=== PATIENT | male | born 1980 | race Caucasian/White ===

== ENCOUNTER 2018-10-10 12:50 | Emergency (ER) | payer OTHER ==
[~2018-10-10] VITALS: Ht 180.3 cm; Wt 85.0 kg
[~2018-10-10 12:50] MED LIST: AMOX500C2 PO; BENZ1LOZ52 MM; LACT1CAP57 PO
[2018-10-10 12:55] VITALS: BP 130/79; PULSE 122; RESP 18; Ht 180.3 cm; Wt 85.0 kg
--- NOTE | 2018-10-10 14:00 | ERD ---
ER Documentation Chief Complaint Chief Complaint sorethroat x8 days, cough today, seen @ clinic 3 days ago HPI 38-year-old male presented to ED for sore throat x8 days. Patient states he was seen at a clinic 3 days ago and they sent him home with throat spray and told to return if symptoms worsen. Patient states the throat sore throat has been worse over the past 2 days. Patient states he has a mild cough. Patient denies any past medical history he is currently not taking any other medications and he has no allergies to medications. Patient states the discomfort is a 7 out of 10. ROS All systems reviewed and are negative except as per history of present illness. Medications Home Meds Active Scripts Benzocaine/Menthol* (Cepacol* Sore Throat Lozenges) 1 Each Lozenge, 1 EACH MM q2h PRN for SORE THROAT for 30 Days, LOZENGE Prov:SAAD MORALES PA-C 10/10/18 Lactobacillus Rhamnosus* (Culturelle*) 1 Each Cap.sprink, 1 CAP PO BID for 30 Days, CAP Prov:SAAD MORALES PA-C 10/10/18 Amoxicillin* (Amoxicillin*) 500 Mg Cap, 500 MG PO BID for 10 Days, CAP Prov:SAAD MORALES PA-C 10/10/18 Allergies Allergies: Coded Allergies: No Known Allergy (Unverified , 10/10/18) PMhx/Soc Medical and Surgical Hx: pt denies Medical Hx, pt denies Surgical Hx Hx Alcohol Use: No Hx Substance Use: No Hx Tobacco Use: No Smoking Status: Never smoker FmHx Family History: No diabetes, No coronary disease, No other Physical Exam Vitals Vital Signs Date Temp Pulse Resp B/P (MAP) Pulse Ox O2 O2 Flow FiO2 Time Delivery Rate 10/10/18 97.7 122 18 130/79 100 12:55 (96) Physical Exam HEENT: Enlarged Grade 3, non-obstructive Tonsils with exudates present NECK: anterior cervical lymphadenopathy. CHEST: Clear to auscultation bilaterally. There are no rales, wheezes or rhonchi. HEART: Regular rate and rhythm. No murmurs, clicks, rubs or gallops. ABDOMEN: Soft, nontender and nondistended. Good bowel sounds. No rebound or guarding. No gross peritonitis. No gross organomegaly or masses. No Bagley sign or McBurney point tenderness. BACK: No midline or flank tenderness. Procedures/MDM ED course: The patient was stable throughout the ED course. The patient and/or family informed of laboratory and diagnostic imaging results throughout the ED course. Procedures: Absence of cough (0/1) = 1 Swollen and tender anterior cervical nodes (0/1) = 1 Temp >100.4 (0/1) = 0 Exudates or swelling ( 0/1) = 1 Age 3-14 (1) 15-44 (0) >45 ( -1) Score = 3 Medical decision making: Patient 38-year-old male presented to ED for sore throat x8 days. Patient was seen at urgent care the other day he was sent home with throat lozenge ears and throat spray. Patient states he is been feeling worse. Physical exam revealed enlarged tonsils grade 3 with exudates present the patient has a foul odor to his breath. On intake the patient indicated that he had a cough but on further investigation he states it just feels pressure in his throat and he feels like he has to cough. Patient can speak in full sentences he is in no acute respiratory distress his tonsils are nonobstructive he is afebrile and O2 sats 100%. At this time I have low suspicion for r Epiglottis, gonococcal pharyngitis, peritonsillar abscess, Scarlet fever, Kawasaki disease, Diphtheria, airway obstruction. The patient will be treated outpatient with antibiotics. Advised patient symptoms worsen return to ER immediately. Patient needs follow- up primary care provider in 1 to 2 days regarding this visit. Questions were answered upon discharge and patient agreement treatment plan. Prescription for home: Amoxicillin Probiotics Throat lozenges I have discussed with the patient proper use and common side effects to expert with the medication . I advised the patient/family to speak with the pharmacist dispensing the medication to be advised of any potential drug interactions with other medication or supplements they may be taking. Discharge: At this time, patient is stable for discharge and outpatient management. I have instructed the patient to follow-up with his\her primary care physician in 1 to 2 days. I have discussed with the patient the possibility of needing to see a specialist for further work-up and imaging studies if symptoms persist. I have instructed the patient to promptly return to the ER for any new or worsening symptoms including increased pain, fever, nausea, vomiting, weakness or LOC. The patient and\or family expressed understanding of and agreement with this plan. All questions were answered. Home care instructions were provided. Disclaimer: Inadvertent spelling and grammatical errors are likely due to EHR\dictation software use and do not reflect on the overall quality of patient care. Also, please note that the electronic time recorded on the note does not necessarily reflect the actual time of the patient encounter. Departure Diagnosis: Primary Impression: Sore throat Additional Impression: Bacterial pharyngitis Condition: Stable Patient Instructions: Pharyngitis, Strep (Presumed) Referrals: [facility] YOU HAVE RECEIVED A MEDICAL SCREENING EXAM AND THE RESULTS INDICATE THAT YOU DO NOT HAVE A CONDITION THAT REQUIRES URGENT TREATMENT IN THE EMERGENCY DEPARTMENT. FURTHER EVALUATION AND TREATMENT OF YOUR CONDITION CAN WAIT UNTIL YOU ARE SEEN IN YOUR DOCTORS OFFICE WITHIN THE NEXT 1-2 DAYS. IT IS YOUR RESPONSIBILITY TO MAKE AN APPOINTMENT FOR FOLOW-UP CARE. IF YOU HAVE A PRIMARY DOCTOR --you should call your primary doctor and schedule an appointment IF YOU DO NOT HAVE A PRIMARY DOCTOR YOU CAN CALL OUR PHYSICIAN REFERRAL HOTLINE AT IF YOU CAN NOT AFFORD TO SEE A PHYSICIAN YOU CAN CHOSE FROM THE FOLLOWING [facility] [address] [facility]. [facility] [address] [facility]. [facility] [address] [facility] [facility] [address] [facility] [facility] [address] [facility]. [facility]. [address] [facility]. [facility] YOU HAVE RECEIVED A MEDICAL SCREENING EXAM AND THE RESULTS INDICATE THAT YOU DO NOT HAVE A CONDITION THAT REQUIRES URGENT TREATMENT IN THE EMERGENCY DEPARTMENT. FURTHER EVALUATION AND TREATMENT OF YOUR CONDITION CAN WAIT UNTIL YOU ARE SEEN IN YOUR DOCTORS OFFICE WITHIN THE NEXT 1-2 DAYS. IT IS YOUR RESPONSIBILITY TO MAKE AN APPOINTMENT FOR FOLOW-UP CARE. IF YOU HAVE A PRIMARY DOCTOR --you should call your primary doctor and schedule and appointment IF YOU DO NOT HAVE A PRIMARY DOCTOR YOU CAN CALL OUR PHYSICIAN REFERRAL HOTLINE AT . IF YOU CAN NOT AFFORD TO SEE A PHYSICIAN YOU CAN CHOSE FROM THE FOLLOWING [facility] INSTIT[facility]IONS: [facility] [address] [place] [address] [facility] [address] [place] [address] [facility] [address] [place] [address] Additional Instructions: FOLLOW UP WITH YOUR PRIMARY CARE PHYSICIAN TOMORROW.Return to this facility if you are not improving as expected. SAAD MORALES PA-C Oct 10, 2018 14:00
== END 2018-10-10 13:55 | disposition home or self-care (01) ==
LOC: FTE 12:50
DX: J02.9 Acute pharyngitis, unspecified (principal)
CPT/HCPCS: 99283